=== PATIENT | female | born 1960 | race African-American/Black ===

== ENCOUNTER 2017-01-15 05:11 | Day surgery (SDC) | payer BC ==
[2017-01-14 11:11] LABS: HEMOGLOBIN 12.2 g/dL (12.0-16.0)
[2017-01-14 11:13] LABS: HEMATOCRIT 37.2 % (36.0-48.0)
[2017-01-14 11:26] LABS: BUN (BLOOD UREA NITROGEN) 14 MG/DL (6-23); CALCIUM, SERUM 9.6 MG/DL (8.5-10.4); CHLORIDE, SERUM 105 MMOL/L (96-112); CO2 (CARBON DIOXIDE) 28 MMOL/L (24-34); CREATININE 0.84 MG/DL (0.55-1.02); GFR AFRICAN AMERICAN 89 ML/MIN (>=60); GFR NON AFRICAN AMERICAN 77 ML/MIN (>=60); GLUCOSE, SERUM 131 MG/DL (60-99); POTASSIUM, SERUM 4.1 MMOL/L (3.5-5.3); SODIUM, SERUM 141 MMOL/L (135-148)
[2017-01-14 13:34] LABS: ASCORBIC ACID (UR NOT ORDER) NEG (NEG); BILIRUBIN, URINE NEGATIVE (NEG); KETONE, URINE NEGATIVE (NEG); LEUKOCYTE ESTERASE(NOT OR NEG (NEG); WBC (NOT ORDERED) (RFLEX) 1 (0-5)
--- NOTE | ~2017-01-15 | OP ---
[facility] Of [place] [address] [place]. [address] NAME: GARDENIA ALEJANDRA : 58 STATUS : [facility] PAT#: [id number] AGE: 56 ADM/REG DATE : 01/15/17 MR#: [id number] REPORT SERV DATE: 01/15/17 DICTATED BY: AMY VOGEL DATE: 01/15/17 REPORT STATUS : Draft TRANSCRIBED BY: MODL DATE: 01/15/17 DATE OF PROCEDURE: 01/15/2017 PREOPERATIVE DIAGNOSIS: Right stiff total knee arthroplasty. POSTOPERATIVE DIAGNOSIS: Right stiff total knee arthroplasty. PROCEDURE PERFORMED: Right total knee arthroplasty, manipulation under general anesthesia with intraarticular injection. SURGEON: Amy Vogel M.D. ANESTHESIA: General. PROCEDURE IN DETAIL: The patient is clearly identified and after obtaining informed consent, she is brought to the PACU procedure area where she is induced under general anesthesia. A time-out procedure was performed. Her knee initially ranges from 5 to 35 degrees with soft endpoint and it is gently manipulated in standard fashion from this to 0 to 135 degrees plus. There is expected release of soft tissues to the entire flexion range consistent with some arthrofibrotic findings throughout and this concluded medial patellar area is prepped and morphine, cortisone, and Marcaine are instilled within the joint uneventfully. A Band- Aid is applied. The patient is allowed to awaken and is transferred to the recovery room in stable condition having tolerated the procedure well. ESTIMATED BLOOD LOSS: 1 mL. FLUIDS: 250 mL. TOURNIQUET: None. PATHOLOGY: None. MICROBIOLOGY: None. COMPLICATIONS: None. SPONGE AND NEEDLE COUNTS: Not applicable. HAYDER/JUAN y Vogel M.D. / [id number] Record Of [place] [address] [place]. [address] NAME: GARDENIA ALEJANDRA : 58 [facility]US : [facility] PAT#: [id number] AGE: 56 ADM/REG DATE : 01/15/17 MR#: [id number] REPORT SERV DATE: 01/15/17 DICTATED BY: AMY VOGEL DATE: 01/15/17 REPORT STATUS : Draft TRANSCRIBED BY: MODL DATE: 01/15/17 CC: Oksana Webb M.D.
[~2017-01-15 05:11] MED LIST: *DENIES; *UNABLE1; ALLEGRA-D24 HOUR PO; ALLEGRA180 PO; AMARYL4 PO; AMITIZA24 PO; ASA5GR PO; BIOTIN PO; C1 PO; CHOLESTEROL MED PO; DENIES HOME MEDS; GLUCOPHAGE PO; GLUCPH PO; HALF81 PO; HCTZ25B PO; HYDROCHLOROT25 MG PO; KAOPECTATE OR; LEVEMFLXPN SC; LIPITOR40 PO; LIPITOR80 MG PO; LOP25 PO; LORT7 PO; MACROBID PO; MCZ25 PO; METFORMIN PO; METHOC500B PO; MOBIC7.5 PO; NEUR300 PO; NORV5 PO; OXYCOD PO; PLAVIX PO; PRIN10 PO; SINGULAIR1 PO; SKELAXIN8 PO; VITAMIN B-625 MG PO; ZOFRAN4 PO; [UNRECOGNIZED DRUG - OTHER] OT; denies
== END 2017-01-15 13:29 | disposition home or self-care (01) ==
LOC: SDC 05:11
PROVIDERS: Orthopaedic Surgery
PROC: 0SSCXZZ Reposition Right Knee Joint, External Approach (ICD-10-PCS; principal; 2017-01-15 06:45)
DX: M25.661 Stiffness of right knee, not elsewhere classified (principal); Z79.01 Long term (current) use of anticoagulants; Z79.02 Long term (current) use of antithrombotics/antiplatelets; Z79.4 Long term (current) use of insulin; Z79.84 Long term (current) use of oral hypoglycemic drugs; Z79.899 Other long term (current) drug therapy
CPT/HCPCS: 80048; 81001; 82962; 85014; 85018; 93005; A9270-GY; J0690; J1040; J2250; J2270; J2274; J2405